=== PATIENT | female | born 1960 | race Caucasian/White ===

== ENCOUNTER 2017-10-28 10:32 | Inpatient (IN) | payer OTHER ==
[2017-10-28] MEDS ORDERED: Ondansetron ODT 4 MG TAB ONE (11:09)
[2017-10-28] MEDS ORDERED: Ketorolac Tromethamine 30 MG/ML VIAL ONE (11:09)
[2017-10-28 11:28] LABS: #Basophils 0.1 thou/uL (0.0-0.2); #Eosinphils 0.1 thou/uL (0.0-0.7); #Monocytes 0.3 thou/uL (0.11-0.59); #Neutrophils 8.7 thou/uL (1.40-6.50); %Basophils 0.9 % (0.0-1.0); %Eosinophils 0.5 % (0.0-10.0); %Lymphocytes 9.7 % (21.0-51.0); %Monocytes 2.7 % (0.0-10.0); %Neutrophils 86.2 % (42.0-75.0); Hemoglobin 14.6 g/dL (12.0-16.0); Mean Corpuscular HGB CONC 34.8 g/dL (32.0-36.0); Mean Corpuscular Hemoglobin 29.5 pg (27.0-31.0); Mean Corpuscular Volume 84.7 fl (81.0-99.0); Mean Platelet Volume 6.7 fL (7.4-10.4); Platelet Count 238 thou/uL (130-400); RBC Distribution Width 11.3 % (11.5-14.5); Red Blood Cell (RBC) Count 4.97 mill/uL (4.20-5.40)
[2017-10-28 11:41] LABS: ALT (SGPT) 152 U/L (8-55); AST (SGOT) 230 U/L (5-34); Alkaline Phosphatase 100 U/L (40-150); Anion Gap 15 mmol/L (10-20); BUN (Urea Nitrogen) 11 mg/dL (9.8-20.1); Bilirubin, Total 1.4 mg/dL (0.2-1.2); Calc. Creatinine Clearance 0 mL/min (70-130); Calcium 9.3 mg/dL (7.8-10.44); Carbon Dioxide 24 mmol/L (22-29); Chloride 106 mmol/L (98-107); Estimated GFR-MDRD 78; Globulin 3.5 g/dL (2.4-3.5); Glucose 145 mg/dL (70-105); Lipase 29 U/L (8-78); Potassium 4.1 mmol/L (3.5-5.1); Protein, Total 7.5 g/dL (6.0-8.3); Sodium 141 mmol/L (136-145)
[2017-10-28] MEDS ORDERED: Iopamidol 370 76% 100 ML VIAL ONE (12:32)
--- NOTE | 2017-10-28 13:50 | CT ---
CT ABDOMEN WITH CONTRAST CT PELVIS WITH CONTRAST: HISTORY: 57-year-old female with nausea, vomiting, epigastric pain, and left upper quadrant abdominal pain. TECHNIQUE: IV injection of iodinated contrast media: [id number]. Oral contrast media: Not administered. FINDINGS: Liver: No focal solid mass. Spleen: No splenomegaly. Pancreas: No mass or surrounding fat stranding. Adrenals: No mass. Kidneys: No hydronephrosis or enhancement abnormalities. Ureters: No dilation. Bladder: No pathology identified. Abdominal aorta: No aneurysm. Small bowel: No dilation. Colon: No adjacent fat stranding. Appendix: No dilation or adjacent fat stranding. Free air: None. Free fluid: None. IMPRESSION: No major pathology identified. marlon [] POS: ISAIAH
--- NOTE | 2017-10-28 14:54 | ULT ---
ULTRASOUND ABDOMEN LIMITED: (RIGHT UPPER QUADRANT) Date: 10/28/17 Time: 1322 hours HISTORY: Epigastric abdominal pain. FINDINGS: Gallbladder: Distended. Normal wall thickness. No pericholecystic edema. Several tiny gallstones in t he proximal body and neck. The patient is medicated, and it is therefore difficult to evaluate for Mu rphy's sign. Common duct: 6 mm. On one of the images, there is a shadowing, hyperechoic structure representing a c alculus, within a duct. It is uncertain whether this is in the cystic duct or the common hepatic duct . Liver: Normal size. Slightly diffusely heterogeneous echogenicity. Pancreas: Nonspecific sonographic appearance. Right kidney: No hydronephrosis. IMPRESSION: 1. Cholelithiasis. 2. Distended gallbladder. 3. Calculus within either the cystic duct or common hepatic duct (possible choledocholithiasis). YASMINE Walsh POS: ISAIAH
[2017-10-28 18:27] VITALS: BMI 35.2
[2017-10-28] MEDS ORDERED: Ondansetron HCl/PF 4 MG/2 ML Vial IVP PRN (19:14)
[2017-10-28] MEDS: Sodium Chloride 0.9% 1,000 ML IV SCH (20:04)
--- NOTE | 2017-10-28 20:18 | HP ---
DATE OF ADMISSION: 10/28/2017 CHIEF COMPLAINT: Abdominal pain. HISTORY OF PRESENT ILLNESS: This is a 57-year-old morbidly obese white female, who has no other know n past medical history, who presented to the hospital following a barbecue night yesterday and this m orning she felt acute onset of abdominal pain in the left upper quadrant associated with nausea and v omiting. She immediately went to [facility], where she was evaluated with CT of the abdomen, which did not show any major problems with her small bowel or the gallbladder. There is suspicion s he had ultrasound of the abdomen because of the Miramontes sign being positive and it showed an evidence of cholelithiasis and a distended gallbladder and also with the calculus within either the cystic heri t or common bile duct. There is suspicion for choledocholithiasis. The patient is admitted for further evaluation and General Surgery has been consulted. The patient i s seen in the floor. She was alert and oriented, and was in no distress at this time. Her pain was 4-5 and is relieved with IV morphine. No aggravating factors were noted at this time. No associated fever was noted. The patient had similar episodes in the past after heavy meals. PAST MEDICAL HISTORY: None. PAST SURGICAL HISTORY: The patient had tonsillectomy and tubes are tied. SOCIAL HISTORY: The patient is not a known smoker. No history of alcohol. No history of illicit dr ug use. FAMILY HISTORY: No significant family history of coronary artery disease, but her father with l tom cancer and her grandfather with a history of [place] and he was a chronic smoker at that time. ALLERGIES: No known drug allergies. HOME MEDICATIONS: None. REVIEW OF SYSTEMS: All 12 systems are reviewed with the patient thoroughly and found to be negative at this time: Constitutional: Weight loss or gain, sense of well-being, ability to conduct usual activities, exerc ise tolerance. Skin/Breast: Rash, itching, changes in hair growth or loss, nail changes, breast lumps, tenderness, swelling, nipple discharge. Eyes: Vision, double vision, tearing, blind spots, pain. ENT/Mouth: Headaches (location, time of onset, duration, precipitating factors), vertigo, lightheade dness, injury. Vision, double vision, tearing, blind spots, pain, nose bleeding, colds, obstruction, discharge, dental difficulties, gingival bleeding, dentures, neck stiffness, pain, tenderness, rena s in thyroid or other areas. Cardiovascular: Precordial pain, substernal distress, palpitations, syncope, dyspnea on exertion, or thopnea, nocturnal paroxysmal dyspnea, edema, cyanosis, hypertension, heart murmurs, varicosities, ph lebitis, claudication. Respiratory: Pain, shortness of breath, wheezing, stridor, cough, hemoptysis, fever or night sweats. Gastrointestinal: Poor appetite, dysphagia, indigestion, abdominal pain, heartburn, eructation, naus ea, vomiting, hematemesis, jaundice, constipation, or diarrhea, abnormal stools (cruz-colored, tarry, bloody, greasy, foul smelling), flatulence, hemorrhoids, recent changes in bowel habits. Genitourinary: Urgency, frequency, dysuria, nocturia, hematuria, polyuria, oliguria, unusual (or alma nge in) color of urine, stones, hesitancy, change in size of stream, dribbling, acute retention or in continence, libido, potency. Musculoskeletal: Pain, swelling, redness or heat of muscles or joints, limitation, of motion, muscul ar weakness, atrophy, cramps. Neurologic/Psychiatric: Convulsions, paralyses, tremor, incoordination, paresthesias, difficulties w ith memory of speech, sensory or motor disturbances, or muscular coordination (ataxia, tremor), emoti onal problems, anxiety, depression, previous psychiatric care, unusual perceptions, hallucinations. Allergy/Immunologic: Skin rash, anemia, bleeding tendency, polydipsia, polyuria, intolerance to heat or cold. PHYSICAL EXAMINATION: VITAL SIGNS: Blood pressures are 148/78, heart rate is 59, respiratory rate is 18, saturating 97% on room air. GENERAL: The patient is morbidly obese. She is alert and oriented, does not appear to be in acute d istress. HEENT: Atraumatic, normocephalic. PERRLA. Extraocular muscles were intact. Oral mucosa is pink an d moist. CARDIOVASCULAR: S1, S2 normal. No murmurs, rubs or gallops. LUNGS: Bilateral air entry was equal. No wheezing, no crackles. ABDOMEN: Soft, nontender. No guarding, no rebound tenderness. Bowel sounds normal. MUSCULOSKELETAL: No calf tenderness. No pedal edema. No joint tenderness. No joint swelling. SKIN: No cyanosis, no erythema, no rash, no pallor. CENTRAL NERVOUS SYSTEM: Cranial nerve examination II-XII intact. No focal deficits were noted. PSYCHIATRIC: No signs of suicidal ideation. No signs of marva was noted. LABORATORY DATA: Sodium is 141, potassium is 4.1, chloride is 106, bicarbonate is 24, BUN is 7, crea tinine is 0.77, blood sugar is 145, total bilirubin is 1.4, AST is 230, ALT is 152. WBC is 10.1, hemoglobin is 14.6, hematocrit is 42.1, platelets 238. ASSESSMENT AND PLAN: 1. Acute cholelithiasis, no evidence of cholecystitis. 2. Possible choledocholithiasis with the common bile duct stone. 3. Hyperglycemia. 4. Intractable nausea and vomiting. 5. Moderate dehydration. 6. Morbid obesity. PLAN: 1. Plan is to closely monitor this patient. We will keep the patient n.p.o. and General Surgery, Dr Leigh Ann Dalal, has been consulted who planned to do the cholecystectomy tomorrow, possibly laparoscopic. I would not start her on any antibiotics as the patient has no evidence of any infection. 2. The patient has mildly elevated blood sugars. The patient has been fasting and has not eaten sin ce yesterday, so we will do hemoglobin A1c to look for any evidence of underlying diabetes. 3. The patient is morbidly obese. Encouraged the patient to lose weight and increase physical activ ity. 4. The patient has evidence of a common bile duct stone. Dr. Dalal and Dr. Judson Dwyer from [facility] has been consulted and will follow with Dr. Dalal's recommendations following cholecystec adebayo. There is suspicion that the patient may end up needing an ERCP after the surgery. 5. The patient has moderate to severe dehydration. We will start the patient on normal saline at 10 0 mL hour. 6. DVT prophylaxis, sequential compression devices. I spent 75 minutes with this patient.
[2017-10-28 20:26] LABS: Hemoglobin A1c 5.4 % (4.0-6.0)
[2017-10-28] MEDS ORDERED: Morphine 4 MG/ML VIAL IV PRN (20:30)
[2017-10-28] MEDS: Famotidine/PF 20 mg/2ml Vial SLOW IVP SCH (21:18)
[2017-10-29 06:02] LABS: #Basophils 0.1 thou/uL (0.0-0.2); #Eosinphils 0.1 thou/uL (0.0-0.7); #Lymphocytes 2.1 thou/uL (1.20-3.40); #Monocytes 0.4 thou/uL (0.11-0.59); %Basophils 0.8 % (0.0-1.0); %Eosinophils 1.4 % (0.0-10.0); %Lymphocytes 31.9 % (21.0-51.0); %Monocytes 6.2 % (0.0-10.0); %Neutrophils 59.6 % (42.0-75.0); Hemoglobin 12.9 g/dL (12.0-16.0); Mean Corpuscular HGB CONC 33.5 g/dL (32.0-36.0); Mean Corpuscular Hemoglobin 29.3 pg (27.0-31.0); Mean Corpuscular Volume 87.6 fl (81.0-99.0); Mean Platelet Volume 6.3 fL (7.4-10.4); Platelet Count 233 thou/uL (130-400); RBC Distribution Width 11.8 % (11.5-14.5); Red Blood Cell (RBC) Count 4.39 mill/uL (4.20-5.40); White Blood Cell (WBC) Count 6.7 thou/uL (4.8-10.8)
[2017-10-29] MEDS: Sodium Chloride 0.9% 1,000 ML IV SCH ×4 (06:02→22:19)
[2017-10-29 06:09] LABS: Anion Gap 6 mmol/L (10-20); BUN (Urea Nitrogen) 10 mg/dL (9.8-20.1); Calc. Creatinine Clearance 131 mL/min (70-130); Calcium 8.3 mg/dL (7.8-10.44); Carbon Dioxide 28 mmol/L (22-29); Chloride 109 mmol/L (98-107); Estimated GFR-MDRD 79; Glucose 96 mg/dL (70-105); Potassium 3.4 mmol/L (3.5-5.1); Sodium 140 mmol/L (136-145)
[2017-10-29] MEDS: Famotidine/PF 20 mg/2ml Vial SLOW IVP SCH (08:05)
--- NOTE | 2017-10-29 09:35 | CON ---
DATE OF CONSULTATION: 10/29/2017 CHIEF COMPLAINT: Upper abdominal pain. HISTORY OF PRESENT ILLNESS: This is a 57-year-old female admitted to the emergency room with chest p ain, rule out GA that was ruled out. She noted epigastric and left upper quadrant pain, but radiatin g straight through to her back associated with nausea, no vomiting. She has had this pain 3 times be fore. Denies previous known history of gallstones, jaundice, pancreatitis. She is found to have gal lstones and elevated liver function test. Her pain is improved overnight, not associated with nausea any more. PAST MEDICAL HISTORY: She denies. PAST SURGICAL HISTORY: Tonsillectomy and tubal ligation. MEDICINES TAKEN DAILY AT HOME: None. ALLERGIES: No known drug allergies. SOCIAL HISTORY: No smoker, no alcohol, no other drugs. REVIEW OF SYSTEMS: Ten system review of systems otherwise negative unless described above. FAMILY HISTORY: Noncontributory to GI malignancy or anesthetic related complication. PHYSICAL EXAMINATION: VITAL SIGNS: Blood pressure 112/63, pulse 67, respirations 18, afebrile. HEENT: Sclerae are anicteric. Oropharynx clear. NECK: No lymphadenopathy. CHEST: Clear. HEART: Regular rhythm. ABDOMEN: Soft, tender in the right upper quadrant, tender epigastric. No guarding or rebound. No a bdominal hernias. EXTREMITIES: No ischemia or edema to extremities. LABORATORY DATA: Sodium 140, potassium 3.4, creatinine 0.76. Yesterday, bilirubin 1.4. AST, ALT ar e elevated at 231 and 52. Alkaline phosphatase normal at 100. Ultrasound shows gallstones, common b ile duct 6 mm. ASSESSMENT: Likely chronic cholecystitis with elevated liver function tests. PLAN: Laparoscopic cholecystectomy with intraoperative cholangiogram. Risks, benefits, alternatives discussed. She gives consent. We will do this today.
[2017-10-29] MEDS ORDERED: PROPOFOL 200 MG/20 ML VIAL ONE (10:43)
[2017-10-29] MEDS ORDERED: Ondansetron HCl/PF 4 MG/2 ML Vial ONE (10:43)
[2017-10-29] MEDS ORDERED: Lidocaine 1% PF 5 ML VIAL ONE (10:43)
[2017-10-29] MEDS ORDERED: Glycopyrrolate 0.2 MG/ML 5 ML SYRINGE ONE (10:43)
[2017-10-29] MEDS ORDERED: Ketorolac Tromethamine 30 MG/ML VIAL ONE (10:43)
[2017-10-29] MEDS ORDERED: Dexamethasone 20 MG/5 ML VIAL ONE (10:43)
[2017-10-29] MEDS ORDERED: Bupivacaine 0.25% HCL 30 ML VIAL ONE (13:32)
[2017-10-29] MEDS ORDERED: Iothalamate Meglumine 60% 50 ML VIAL FS ONE (13:32)
[2017-10-29] MEDS ORDERED: Bupivacaine/Epinephrine 0.25% 30 ML VIAL ONE (13:32)
[2017-10-29] MEDS ORDERED: Sodium Chloride 0.9% 100 ML ONE (13:49)
[2017-10-29] MEDS ORDERED: Midazolam HCl 2 mg/2 ml Vial ONE (13:50)
[2017-10-29] MEDS ORDERED: Fentanyl 100 MCG/2 ML VIAL ONE (13:52)
[2017-10-29] MEDS ORDERED: cefOXitin 2 GM VIAL ONE (14:01)
[2017-10-29] MEDS ORDERED: HYDROmorphone 2 MG/ML VIAL SLOW IVP PRN (15:08)
[2017-10-29] MEDS ORDERED: Promethazine HCl 25 MG/ML VIAL SLOW IVP PRN (15:08)
[2017-10-29] MEDS ORDERED: Morphine Sulfate 2 MG/ML SYRINGE SLOW IVP PRN (15:08)
[2017-10-29] MEDS ORDERED: Meperidine HCl/PF 25 MG/ML VIAL SLOW IVP PRN (15:08)
[2017-10-29] MEDS ORDERED: Dextrose 5% in Water 1,000 ML IV PRN (15:53)
[2017-10-29] MEDS ORDERED: hydrALAZINE 20 MG/ML VIAL SLOW IVP PRN (15:53)
[2017-10-29] MEDS ORDERED: Dextrose 50% Abboject 50 ML SYRINGE SLOW IVP PRN (15:53)
[2017-10-29] MEDS ORDERED: Promethazine HCl 25 MG/ML VIAL IM PRN (15:53)
[2017-10-29] MEDS ORDERED: Mag-Al 1200 mg/1200 mg/30 ML UDCUP PO PRN (15:53)
[2017-10-29] MEDS ORDERED: Calcium Carbonate 500 MG ChewTAB PO PRN (15:53)
[2017-10-29] MEDS ORDERED: HYDROcodone/Acetaminophen 10/325 mg Tablet PO PRN ×2 (15:53)
[2017-10-29] MEDS ORDERED: Morphine 4 MG/ML VIAL SLOW IVP PRN ×2 (15:53)
[2017-10-29] MEDS ORDERED: Ondansetron HCl/PF 4 MG/2 ML Vial IVP PRN (15:53)
--- NOTE | 2017-10-29 16:24 | RAD ---
INTRAOPERATIVE CHOLANGIOGRAM: Date: 10-29-17 History: Cholelithiasis and distended gallbladder with suggestion of calculus within the cystic duct or common hepatic duct. FINDINGS: A single intraoperative fluoroscopic image of the right upper quadrant is submitted from intraoperati ve cholangiogram. The cystic duct is cannulated. The common duct distal to the level of the cyst duct is well opacified and no filling defect is seen. However, the more proximal hepatic common duct is w ell opacified and filling defect in this region cannot be excluded. The limited visualized intrahepat ic ducts demonstrate no obvious filling defect or dilatation. There is free spill of contrast into th e duodenum. IMPRESSION: 1. Nonvisualization of the common duct proximal to the level of the cystic duct. 2. No filling defect seen in the distal common duct, and there is free flow of contrast into the smal l bowel. 3. Correlation with intraoperative findings is recommended. POS: ISAIAH
[2017-10-29] MEDS: Famotidine 20 MG TAB PO SCH (20:29)
[2017-10-29] MEDS: Docusate 100 MG CAP PO SCH (20:29)
[2017-10-30] MEDS: Famotidine 20 MG TAB PO SCH (07:56)
[2017-10-30] MEDS: Docusate 100 MG CAP PO SCH (07:56)
[2017-10-30 08:28] VITALS: BP 102/66; TEMP 98
--- NOTE | 2017-10-30 12:01 | DIS ---
ADMIT DIAGNOSIS: Upper abdominal pain. DISCHARGE DIAGNOSIS: Upper abdominal pain. PROCEDURES: Laparoscopic cholecystectomy with intraoperative cholangiogram by Dr. Dalal without co mplication. CONDITION AT DISCHARGE: Improved. STAFF: Dr. Franklin Dalal. HOSPITAL COURSE: The patient was initially admitted with atypical type chest pain. After cardiac ev ent was ruled out she had ultrasound which revealed gallstones. She had elevation of her liver funct ion test. I performed laparoscopic cholecystectomy with intraoperative cholangiogram. She had a nor [facility] cholangiogram. On the day of discharge, she is doing well. Her pain is controlled. She is tole rating food. She is discharged to home. She is going to follow up with me in 2 weeks. Prescription s given for [place] and Zofran.
--- NOTE | 2017-10-30 14:23 | OP ---
DATE OF PROCEDURE: 10/29/2017 PREOPERATIVE DIAGNOSIS: Acute cholecystitis with liver function test elevation. POSTOPERATIVE DIAGNOSIS: Acute cholecystitis with liver function test elevation. PROCEDURE: Laparoscopic cholecystectomy with intraoperative cholangiogram. SURGEON: Dr. Dalal. ANESTHESIA: General. ESTIMATED BLOOD LOSS: Minimal. COMPLICATIONS: None. SPECIMEN: Gallbladder. FINDINGS: Normal cholangiogram. TECHNIQUE: The patient was taken to the operating room and placed supine on the table. After genera l anesthetic was obtained, the abdomen was prepped and draped in a sterile fashion. Curved incision made below the umbilicus. Cautery was used to dissect down to and score the fascia. Abdominal cavit y bluntly using a Heidi clamp. Holding stitch of PDS placed on each side of the fascia. Zendejas troc ar was placed. High flow pneumoperitoneum was obtained. Upper midline 5-mm port and 2 right upper q uadrant 5-mm port was placed under direct visualization. The peritoneum was taken down anteriorly an d posteriorly. The critical view triangle was seen showing only the cystic duct and cystic artery br anching from medial to lateral and no other branching structures. A clip was placed on the cystic du ct. A small ductotomy was made just proximal to that. A cholangiocatheter was brought in through a separate stab incision and placed in the cystic duct and a cholangiogram is performed which shows goo d contrast flow into the duodenum without obstruction. Cholangiocatheter was removed. Two clips wer e placed proximal on the cystic duct, it was cut using laparoscopic scissors. Cystic artery was take n using 2 clips proximal and 1 clip distal and cut using laparoscopic scissors. The cautery was used to dissect the gallbladder and gallbladder fossa. Gallbladder was placed in an Endo catch bag and b rought through the Zendejas. Meticulous hemostasis obtained in the liver bed. There is no bleeding, n o damage to intraabdominal structures. All port sites were infiltrated using local anesthetic. All p orts were removed under camera visualization. Pneumoperitoneum was let down. PDS was used to close the fascial defect above the umbilicus. All incisions were irrigated and closed using 4-0 Monocryl a nd Dermabond. The patient was en route to recovery in stable condition. All instrument counts, need le counts, and lap counts were correct.
== END 2017-10-30 09:25 | disposition home or self-care (01) | DRG 419 ==
LOC: SCSER 10:32 → T4-B 15:04
PROVIDERS: ADMIT Internal Medicine; ATTEND Internal Medicine
PROC: 0FT44ZZ Resection of Gallbladder, Percutaneous Endoscopic Approach (ICD-10-PCS; principal; 2017-10-29)
PROC: BF101ZZ Fluoroscopy of Bile Ducts using Low Osmolar Contrast (ICD-10-PCS; 2017-10-29)
DX: K80.62 Calculus of gallbladder and bile duct with acute cholecystitis without obstruction (principal); R73.9 Hyperglycemia, unspecified; E86.0 Dehydration; E66.01 Morbid (severe) obesity due to excess calories; Z98.51 Tubal ligation status; Z68.35 Body mass index [BMI] 35.0-35.9, adult
CPT/HCPCS: 36415; 47532; 74177; 76705; 80048; 80053; 83036; 83690; 85025; 88304; 93005; 96372; A4216; J0694; J1100; J1885; J2001; J2250; J2270; J2405; J2704; J3010; J7050; Q0162; Q9961; S0020; S0028